=== PATIENT | female | born 1990 | race Caucasian/White ===

== ENCOUNTER 2019-07-25 16:11 | Emergency (ER) | payer BC, OTHER ==
[~2019-07-25] VITALS: Ht 165.1 cm; Wt 65.7 kg
[~2019-07-25 16:11] MED LIST: MAPA500T17 PO; PRENTAB9 PO
[2019-07-25] MEDS ORDERED: EXCEDRIN (16:21)
[2019-07-25] MEDS ORDERED: MIRE1IUD IU (16:57)
[2019-07-25] MEDS ORDERED: KETOROLAC 30 MG/ML 1ML VIAL IV ONE (17:45)
[2019-07-25] MEDS ORDERED: ONDANSETRON 4MG/2ML VIAL IV ONE (17:45)
[2019-07-25] MEDS ORDERED: NS 1,000 ML IV ONE (17:45)
[2019-07-25 18:41] LABS: BASO % 0.6 % (0.0-1.0); EOS # 0.1 10^3/uL (0.0-0.5); EOS % 1.3 % (0.0-3.0); HEMATOCRIT 37.3 % (36.0-47.0); HEMOGLOBIN 12.9 g/dl (12.0-15.5); LYMPH # 1.7 10^3/uL (1.5-5.0); LYMPH % 23.7 % (24.0-44.0); MEAN CORPUSCULAR HEMOGLOBIN 31.6 pg (27.0-33.0); MEAN CORPUSCULAR HGB CONC 34.6 g/dl (32.0-36.5); MEAN CORPUSCULAR VOLUME 91.4 fl (80.0-96.0); MONO # 0.5 10^3/uL (0.0-0.8); NEUTROPHILS # 4.7 10^3/uL (1.5-8.5); NEUTROPHILS % 67.3 % (36.0-66.0); PLATELET COUNT, AUTOMATED 287 10^3/uL (150-450); RED BLOOD COUNT 4.08 10^6/uL (4.00-5.40)
[2019-07-25 19:13] LABS: BLOOD UREA NITROGEN 13 MG/DL (7-18); CALCIUM LEVEL 9.8 MG/DL (8.5-10.1); CARBON DIOXIDE LEVEL 28 MEQ/L (21-32); CHLORIDE LEVEL 104 MEQ/L (98-107); FREE T4 1.23 NG/DL (0.76-1.46); GLOMERULAR FILTRATION RATE > 60.0 (>60); GLUCOSE, FASTING 80 MG/DL (70-100); IRON (FE) 72 UG/DL (50-170); MAGNESIUM LEVEL 1.9 MG/DL (1.8-2.4); PERCENT SATURATION 24.2 % (13.2-45.0); SODIUM LEVEL 139 MEQ/L (136-145); TOTAL IRON BINDING CAPACITY 298 UG/DL (250-450); VITAMIN B12 LEVEL 193 PG/ML (247-911)
--- NOTE | 2019-07-25 19:16 | REPVR ---
PROCEDURE INFORMATION: Exam: CT Cervical Spine Without Contrast Exam date and time: 07/25/2019 6:49 PM Age: 28 years old Clinical indication: Neck pain; Additional info: New onset headache/tingling in extremities TECHNIQUE: Imaging protocol: Computed tomography images of the cervical spine without contrast. Radiation optimization: All CT scans at this facility use at least one of these dose optimization techniques: automated exposure control; mA and/or kV adjustment per patient size (includes targeted exams where dose is matched to clinical indication); or iterative reconstruction. COMPARISON: No relevant prior studies available. FINDINGS: Vertebrae: There is straightening of the normal cervical lordosis. There is no fracture or subluxation. The atlantooccipital alignment is normal. The atlantoaxial alignment is normal. The vertebral body heights are preserved. There is no cervical rib. No suspicious osteolytic or osteoblastic lesion is noted. Discs/Spinal canal/Neural foramina: The disc heights are preserved. No disc herniation, spinal canal stenosis, or neural foraminal stenosis is identified at any of the imaged levels. The facet joints are unremarkable. Prevertebral Space: No prevertebral soft tissue swelling is noted. Soft tissues: Unremarkable. No soft tissue fluid collection is noted. Thyroid: There is an 18 mm nodule in the mid to lower pole of the left lobe of the thyroid gland and a 4 mm nodule in the midpole of the right lobe of the thyroid gland (images 10-11 of the coronal series 303). No enlargement of the thyroid gland is noted. Lungs: The imaged lung apices are clear. The lungs were not fully imaged. IMPRESSION: 1. Straightening of the normal cervical lordosis, but no fracture or subluxation in the cervical spine. 2. No disc herniation, spinal canal stenosis, or neural foraminal stenosis seen in the cervical spine. 3. Thyroid nodules as described above, the largest measuring 18 mm in the mid to lower pole of the left lobe of the thyroid gland. Further evaluation with a thyroid ultrasound is recommended, which can be performed on a nonemergent basis. COMMENTS: Consistent with the [employer]'s Incidental Findings Committee white paper (J Am Lala Radiol 2015): In patients under 35 years old with an incidental thyroid nodule equal to or greater than [address], MRI or extrathyroidal US, further evaluation with dedicated thyroid US is recommended for patients with normal life expectancy and without comorbidities. For smaller nodules without suspicious features, no further evaluation or follow up is recommended. Electronically signed by: Genaro Patel On 07/25/2019 19:15:30 PM
--- NOTE | 2019-07-25 19:16 | REPVR ---
PROCEDURE INFORMATION: Exam: CT Head Without Contrast Exam date and time: 07/25/2019 6:49 PM Age: 28 years old Clinical indication: Pain; Headache; Additional info: New onset headache/tingling in extremities TECHNIQUE: Imaging protocol: Computed tomography of the head without contrast. Radiation optimization: All CT scans at this facility use at least one of these dose optimization techniques: automated exposure control; mA and/or kV adjustment per patient size (includes targeted exams where dose is matched to clinical indication); or iterative reconstruction. COMPARISON: No relevant prior studies available. FINDINGS: Brain: There is no evidence for an acute large vessel territorial infarct, intracranial hemorrhage, mass, mass effect, or herniation. The cortical gyration pattern, basal ganglia, thalami, brainstem, and cerebellum are normal in appearance. Ventricles: Normal. No ventriculomegaly. Bones/joints: Unremarkable. No acute fracture. Sinuses: Visualized sinuses are well-aerated. No air-fluid levels. Mastoid air cells: Visualized mastoid air cells are well-aerated. Orbits: The globes and orbits are intact and normal in appearance. Soft tissues: Unremarkable. IMPRESSION: No acute intracranial abnormality. Electronically signed by: Genaro Patel On 07/25/2019 19:15:47 PM
[2019-07-25] MEDS ORDERED: VITA250T50 PO (19:58)
[2019-07-25 20:09] VITALS: BP 121/55
--- NOTE | 2019-07-26 14:25 | ED PDOC ---
Post-Departure [facility]-Up [facility] faxed formal report of ct c spine for fun Trang Saenz MD July 26, 2019 14:25
== END 2019-07-25 20:11 | disposition home or self-care (01) ==
LOC: M ED 16:11
DX: R51 Headache (principal); E53.8 Deficiency of other specified B group vitamins; E04.1 Nontoxic single thyroid nodule; M54.2 Cervicalgia; Z87.59 Personal history of other complications of pregnancy, childbirth and the puerperium
CPT/HCPCS: 70450; 72125; 80048; 82607; 83550; 83735; 84439; 84443; 84702; 85025; 96361; 96374; 96375; 99284; J1885; J2405

== ENCOUNTER → 2022-09-12 | Outpatient (REF) | payer OTHER ==
[~2022-09-12] MED LIST changes: +EXCEDRIN; +MIRE1IUD IU; +VITA250T7 PO
== END ==
LOC: M SFHCDERM 17:21
PROVIDERS: ATTEND Nurse Practitioner Family
DX: D49.2 Neoplasm of unspecified behavior of bone, soft tissue, and skin (principal)

== ENCOUNTER → 2022-11-27 | Outpatient (REF) | payer OTHER, MEDICAID | LOC: M LAB REF 11:34 | PROVIDERS: ATTEND Nurse Practitioner Family | DX: N39.0 Urinary tract infection, site not specified (principal) ==

== ENCOUNTER 2023-01-20 18:54 | Emergency (ER) | payer MEDICAID, OTHER ==
[~2023-01-20] VITALS: Ht 165.1 cm; Wt 76.0 kg
[2023-01-20 18:55] VITALS: BP 119/76; TEMP 96; O2SAT 100
[2023-01-20] MEDS ORDERED: AMPHETA/DEXTRO PO (19:20)
[2023-01-20] MEDS ORDERED: ARIP1TAB6 PO (19:20)
[2023-01-20 19:31] LABS: APPEARANCE, URINE CLOUDY (CLEAR); BACTERIA, URINE AUTO 1+ (NEGATIVE); BILIRUBIN, URINE AUTO NEGATIVE (NEGATIVE); BLOOD, URINE BLOOD 3+ (NEGATIVE); COLOR, URINE AMBER (YELLOW); GLUCOSE, URINE (UA) AUTO NEGATIVE (NEGATIVE); KETONE, URINE AUTO NEGATIVE (NEGATIVE); LEUKOCYTE ESTERASE, URINE AUTO 2+ (NEGATIVE); MUCUS, URINE SMALL (NEGATIVE); NITRITE, URINE AUTO NEGATIVE (NEGATIVE); PROTEIN, URINE AUTO 2+ mg/dL (NEGATIVE); RBC, URINE AUTO TNTC /HPF (0-3); SPECIFIC GRAVITY URINE AUTO 1.023 (1.002-1.035); SQUAMOUS EPITHELIAL CELL UR AU 5 /HPF (0-6); UROBILINOGEN, URINE AUTO 0.2 mg/dL (0.0-2.0); WBC, URINE AUTO TNTC /HPF (0-3)
[2023-01-20] MEDS ORDERED: PHENAZOPYRIDINE 100 MG TAB PO ONE (19:45)
[2023-01-20] MEDS ORDERED: NITROFURANTOIN (MACROBID) 100 MG CAP PO ONE (19:45)
[2023-01-20] MEDS ORDERED: KETOROLAC 60MG 2ML VIAL IM ONE (19:45)
[2023-01-20] MEDS ORDERED: PYRI1TAB5 PO (19:50)
[2023-01-20] MEDS ORDERED: MACR100C43 PO (19:50)
== END 2023-01-20 20:12 | disposition home or self-care (01) ==
LOC: M ED 18:54
DX: N39.0 Urinary tract infection, site not specified (principal); Z79.899 Other long term (current) drug therapy
CPT/HCPCS: 81001; 96372; 99282; J1885

== ENCOUNTER 2023-11-27 11:08 | Emergency (ER) | payer OTHER ==
[~2023-11-27] VITALS: Ht 165.1 cm; Wt 72.6 kg
[~2023-11-27 11:08] MED LIST changes: +AMPHETA/DEXTRO PO; +ARIP1TAB6 PO; +MACR100C43 PO; +PYRI1TAB5 PO
[2023-11-27] MEDS ORDERED: AMPH1CAP16 (11:35)
[2023-11-27] MEDS ORDERED: AMPHETA/DEXTRO (11:35)
[2023-11-27] MEDS ORDERED: LAMO25TA4 (11:35)
[2023-11-27 12:06] LABS: BASO # 0.1 10^3/uL (0.0-0.2); BASO % 0.5 % (0.0-1.0); EOS # 0.1 10^3/uL (0.0-0.5); EOS % 0.5 % (0.0-3.0); HEMATOCRIT 37.6 % (36.0-47.0); LYMPH # 1.8 10^3/uL (1.5-5.0); MEAN CORPUSCULAR HEMOGLOBIN 30.8 pg (27.0-33.0); MEAN CORPUSCULAR HGB CONC 34.6 g/dl (32.0-36.5); MEAN CORPUSCULAR VOLUME 89.1 fl (80.0-96.0); MONO # 0.6 10^3/uL (0.0-0.8); MONO % 6.6 % (2.0-8.0); NEUTROPHILS % 73.2 % (36.0-66.0); PLATELET COUNT, AUTOMATED 279 10^3/uL (150-450); RED BLOOD COUNT 4.22 10^6/uL (4.00-5.40); WHITE BLOOD COUNT 9.5 10^3/uL (4.0-10.0)
[2023-11-27] MEDS: KETOROLAC 30 MG/ML 1ML VIAL IV ONE (12:08)
[2023-11-27 12:32] LABS: LIPASE 36 U/L (12-53)
[2023-11-27 12:34] LABS: ALBUMIN 4.1 G/DL (3.2-5.2); ALKALINE PHOSPHATASE 63 U/L (46-116); ALT/SGPT 15 U/L (7.0-40); AST/SGOT 13 U/L (<34); BILIRUBIN,DIRECT 0.3 MG/DL (<0.4); BILIRUBIN,TOTAL 0.9 MG/DL (0.3-1.2); TOTAL PROTEIN 7.2 G/DL (5.7-8.2)
[2023-11-27 12:48] LABS: HCG, SERUM QUALITATIVE NEGATIVE (NEGATIVE)
[2023-11-27] MEDS: cefTRIAXone SOD 1 GM in D5W MINI-BAG PLUS 50 ML IV ONE (14:41)
[2023-11-27 15:37] VITALS: BP 119/65; TEMP 98.8; O2SAT 99
[2023-11-27] MEDS ORDERED: KETO10TAB PO (15:53)
[2023-11-27] MEDS ORDERED: ONDA-282 PO (15:53)
[2023-11-27] MEDS ORDERED: CEFD1CAP9 PO (15:53)
== END 2023-11-27 16:11 | disposition home or self-care (01) ==
LOC: M ED 11:08
DX: N39.0 Urinary tract infection, site not specified (principal); Z87.442 Personal history of urinary calculi; F41.9 Anxiety disorder, unspecified; F32.A Depression, unspecified; Z79.899 Other long term (current) drug therapy
CPT/HCPCS: 74176; 80047; 80076; 81000; 81015; 83690; 84703; 85025; 87086; 96365; 96375; 99284; J0696; J1885